=== PATIENT | female | born 1995 | race Caucasian/White ===

== ENCOUNTER → 2018-02-02 | Outpatient (CLI) | payer OTHER, SELFPAY | LOC: M LRY 15:16 | DX: S39.92XA Unspecified injury of lower back, initial encounter (principal); X58.XXXA Exposure to other specified factors, initial encounter; Y92.89 Other specified places as the place of occurrence of the external cause | CPT/HCPCS: 72072 ==

== ENCOUNTER → 2019-03-14 | Outpatient (CLI) | payer SELFPAY ==
--- NOTE | 2019-03-15 07:20 | REP ---
REASON: Foot pain . FINDINGS: The joint spaces are symmetric and relatively well maintained. There is no evidence of acute fracture or destructive osseous lesion. IMPRESSION: Negative. Electronically Signed by Brandon Pena DO 03/15/2019 04:29 P
== END ==
LOC: M LRY 17:08
PROVIDERS: ATTEND Physician Assistant
DX: S99.921A Unspecified injury of right foot, initial encounter (principal); X58.XXXA Exposure to other specified factors, initial encounter; Y92.89 Other specified places as the place of occurrence of the external cause

== ENCOUNTER → 2020-01-11 | Outpatient (CLI) | payer OTHER ==
[2020-01-11 17:09] LABS: BASO % 0.4 % (0.0-1.0); EOS # 0.1 10^3/uL (0.0-0.5); EOS % 1.3 % (0.0-3.0); HEMATOCRIT 45.2 % (36.0-47.0); HEMOGLOBIN 15.3 g/dl (12.0-15.5); LYMPH # 1.2 10^3/uL (1.5-5.0); MEAN CORPUSCULAR HEMOGLOBIN 32.1 pg (27.0-33.0); MEAN CORPUSCULAR HGB CONC 33.8 g/dl (32.0-36.5); MONO # 0.7 10^3/uL (0.0-0.8); MONO % 8.6 % (0.0-5.0); NEUTROPHILS # 6.2 10^3/uL (1.5-8.5); NEUTROPHILS % 74.6 % (36.0-66.0); PLATELET COUNT, AUTOMATED 307 10^3/uL (150-450); RED BLOOD COUNT 4.76 10^6/uL (4.00-5.40); WHITE BLOOD COUNT 8.3 10^3/uL (4.0-10.0)
[2020-01-11 17:43] LABS: ALBUMIN 4.7 GM/DL (3.2-5.2); ALT/SGPT 18 U/L (12-78); BILIRUBIN,TOTAL 0.5 MG/DL (0.2-1.0); BLOOD UREA NITROGEN 8 MG/DL (7-18); CALCIUM LEVEL 9.2 MG/DL (8.5-10.1); CARBON DIOXIDE LEVEL 26 MEQ/L (21-32); CHLORIDE LEVEL 104 MEQ/L (98-107); GLOMERULAR FILTRATION RATE > 60.0 (>60); GLUCOSE, FASTING 82 MG/DL (70-100); IRON (FE) 92 UG/DL (50-170); POTASSIUM SERUM 4.1 MEQ/L (3.5-5.1); SODIUM LEVEL 136 MEQ/L (136-145); TOTAL IRON BINDING CAPACITY 354 UG/DL (250-450); TOTAL PROTEIN 7.6 GM/DL (6.4-8.2); VITAMIN B12 LEVEL 443 PG/ML
[2020-01-11 17:46] LABS: FOLATE 13.4 NG/ML
[2020-01-11 18:51] LABS: ERYTHROCYTE SEDIMENTATION RATE 2 mm/hr (0-20)
== END ==
LOC: M WUC 14:52
PROVIDERS: ATTEND Physician Assistant
DX: R23.3 Spontaneous ecchymoses (principal)

== ENCOUNTER → 2020-02-14 | Outpatient (REF) | payer OTHER | LOC: M SFHCPLAZ 14:38 | PROVIDERS: ATTEND Family Medicine | DX: M25.50 Pain in unspecified joint (principal) ==

== ENCOUNTER → 2020-03-05 | Outpatient (REF) | payer OTHER | LOC: M SFHCPLAZ 09:47 | PROVIDERS: ATTEND Family Medicine | DX: Z12.4 Encounter for screening for malignant neoplasm of cervix (principal) ==

== ENCOUNTER → 2020-04-17 | Outpatient (REF) | payer OTHER ==
[2020-04-17 16:26] LABS: HCG, SERUM QUALITATIVE NEGATIVE (NEGATIVE)
== END ==
LOC: M SFHCPLAZ 14:05
PROVIDERS: ATTEND Family Medicine
DX: N91.2 Amenorrhea, unspecified (principal)

== ENCOUNTER → 2020-04-21 | Outpatient (CLI) | payer OTHER | LOC: M WUC 10:17 | PROVIDERS: ATTEND Family Medicine | DX: L72.9 Follicular cyst of the skin and subcutaneous tissue, unspecified (principal); Z3A.01 Less than 8 weeks gestation of pregnancy ==

== ENCOUNTER → 2020-04-26 | Outpatient (REF) | payer OTHER | LOC: M PLALAB 11:09 | PROVIDERS: ATTEND Family Medicine | DX: Z3A.01 Less than 8 weeks gestation of pregnancy (principal) ==

== ENCOUNTER → 2020-05-25 | Outpatient (REF) | payer OTHER ==
[2020-05-25 13:35] LABS: HEMOGLOBIN 14.5 g/dl (12.0-15.5); MEAN CORPUSCULAR HEMOGLOBIN 31.7 pg (27.0-33.0); MEAN CORPUSCULAR HGB CONC 33.7 g/dl (32.0-36.5); MEAN CORPUSCULAR VOLUME 94.1 fl (80.0-96.0); PLATELET COUNT, AUTOMATED 344 10^3/uL (150-450); RED BLOOD COUNT 4.57 10^6/uL (4.00-5.40); WHITE BLOOD COUNT 9.8 10^3/uL (4.0-10.0)
[2020-05-25 14:29] LABS: HEPATITIS C VIRUS ABY INDEX 0.1 INDEX (<0.8); HIV 1&2 SCREEN CENTAUR NEGATIVE (NEGATIVE)
== END ==
LOC: M PLALAB 10:25
PROVIDERS: ATTEND Advanced Practice Midwife
DX: Z34.01 Encounter for supervision of normal first pregnancy, first trimester (principal)

== ENCOUNTER → 2024-04-29 | Outpatient (CLI) | payer BC ==
[2024-04-29 09:51] LABS: BASO % 0.3 % (0.0-1.0); EOS # 0.2 10^3/uL (0.0-0.5); EOS % 2.9 % (0.0-3.0); HEMOGLOBIN 14.3 g/dl (12.0-15.5); LYMPH # 1.9 10^3/uL (1.5-5.0); LYMPH % 26.6 % (24.0-44.0); MEAN CORPUSCULAR HEMOGLOBIN 31.2 pg (27.0-33.0); MEAN CORPUSCULAR HGB CONC 32.5 g/dl (32.0-36.5); MEAN CORPUSCULAR VOLUME 96.1 fl (80.0-96.0); MONO # 0.5 10^3/uL (0.0-0.8); MONO % 7.4 % (2.0-8.0); NEUTROPHILS # 4.4 10^3/uL (1.5-8.5); NEUTROPHILS % 62.4 % (36.0-66.0); PLATELET COUNT, AUTOMATED 320 10^3/uL (150-450); RED BLOOD COUNT 4.58 10^6/uL (4.00-5.40)
[2024-04-29 10:09] LABS: ERYTHROCYTE SEDIMENTATION RATE 6 mm/hr (0-20)
[2024-04-29 10:18] LABS: C REACTIVE PROTEIN QUANTITATIV < 0.40 MG/DL (<1.0)
[2024-04-29 10:19] LABS: ALBUMIN 4.2 G/DL (3.2-5.2); ALKALINE PHOSPHATASE 46 U/L (46-116); ALT/SGPT 20 U/L (7.0-40); AST/SGOT 13 U/L (<34); BILIRUBIN,TOTAL 0.7 MG/DL (0.3-1.2); BLOOD UREA NITROGEN 14 MG/DL (9-23); CALCIUM LEVEL 8.6 MG/DL (8.5-10.1); CARBON DIOXIDE LEVEL 29 MMOL/L (20-31); CHLORIDE LEVEL 104 MMOL/L (98-107); CREATININE FOR GFR 0.63 MG/DL (0.55-1.30); GLOMERULAR FILTRATION RATE > 60.0 (>60); GLUCOSE, FASTING 73 MG/DL (60-100); POTASSIUM SERUM 4.6 MMOL/L (3.5-5.1); SODIUM LEVEL 137 MMOL/L (136-145); TOTAL PROTEIN 6.7 G/DL (5.7-8.2)
[2024-04-29 10:33] LABS: TOTAL 25(OH) VITAMIN D 29.5 NG/ML (20.0-100.0)
== END ==
LOC: M RAD 07:53
PROVIDERS: ATTEND Internal Medicine Rheumatology
DX: M62.830 Muscle spasm of back (principal); M51.34 Other intervertebral disc degeneration, thoracic region; Z15.89 Genetic susceptibility to other disease; R52 Pain, unspecified; R53.83 Other fatigue; R21 Rash and other nonspecific skin eruption; H04.123 Dry eye syndrome of bilateral lacrimal glands

== ENCOUNTER 2024-12-04 08:42 | Emergency (ER) | payer BC, OTHER ==
[~2024-12-04] VITALS: Ht 147.3 cm; Wt 21.7 kg
[2024-12-04 08:45] VITALS: BP_DIAS 88
[2024-12-04] MEDS ORDERED: CYCL5TAB4 (09:55)
[2024-12-04] MEDS ORDERED: DULO1CAP4 (09:55)
[2024-12-04 11:08] VITALS: BP_SYST 126; TEMP 97.8; O2SAT 100
== END 2024-12-04 11:10 | disposition home or self-care (01) ==
LOC: M ED 08:42
DX: S92.491A Other fracture of right great toe, initial encounter for closed fracture (principal); Y92.019 Unspecified place in single-family (private) house as the place of occurrence of the external cause; Y93.9 Activity, unspecified; Y99.9 Unspecified external cause status; Z79.899 Other long term (current) drug therapy

== ENCOUNTER 2024-12-29 07:40 | Emergency (ER) | payer OTHER ==
[~2024-12-29] VITALS: Ht 147.3 cm; Wt 48.4 kg
[~2024-12-29 07:40] MED LIST: CYCL5TAB4; DULO1CAP4
[2024-12-29 09:34] VITALS: BP 132/65; TEMP 97.6; O2SAT 100
== END 2024-12-29 09:36 | disposition home or self-care (01) ==
LOC: M ED 07:40
DX: M54.50 Low back pain, unspecified (principal); M54.6 Pain in thoracic spine; M54.2 Cervicalgia; Z79.899 Other long term (current) drug therapy

== ENCOUNTER → 2025-02-25 | Outpatient (CLI) | payer OTHER | LOC: M RAD 12:06 | PROVIDERS: ATTEND Family Medicine | DX: M54.6 Pain in thoracic spine (principal) ==

== ENCOUNTER → 2025-06-26 | Outpatient (CLI) | payer OTHER ==
[~2025-06-26] MED LIST changes: +PROHANCE 279.3MG/ML 5ML VIAL ONE
== END ==
LOC: M PLAIMG 09:10
PROVIDERS: ATTEND Physician Assistant
DX: Q06.4 Hydromyelia (principal)
CPT/HCPCS: 70553; 72156; A9576

== ENCOUNTER → 2025-06-29 | Outpatient (CLI) | payer OTHER ==
[~2025-06-29] MED LIST changes: +PROHANCE 279.3MG/ML 15ML VIAL As Ordered ONE; -PROHANCE 279.3MG/ML 5ML VIAL ONE
== END ==
LOC: M RAD 07:59
PROVIDERS: ATTEND Physician Assistant
DX: Q06.4 Hydromyelia (principal)
CPT/HCPCS: 72157; 72158; A9576